=== PATIENT | male | born 1990 | race Caucasian/White ===

== ENCOUNTER → 2016-09-13 | Outpatient (CLI) | payer BC ==
[2015-07-31 21:20] VITALS: BP 115/69
--- NOTE | 2016-09-13 12:41 | RAD ---
Testicular ultrasound History: Left hydrocele. Comparison: Scrotal ultrasound 06/04/2013. Findings: Right testicle measures 4.7 x 2.2 x 3.0 cm. Right testicle demonstrates normal parenchymal echogenicity. The right epididymis is unremarkable. Small right hydrocele is seen. Left testicle measures 4.7 x 2.6 x 2.8 cm. Left testicle demonstrates normal parenchymal echogenicity. The left epididymis is suboptimally visualized. Large left hydrocele is again seen. Doppler imaging demonstrates normal flow to both testicles, without evidence of torsion. Impression: 1. No evidence of testicular mass or torsion. 2. Persistent large left hydrocele. Small right hydrocele.
== END | disposition home or self-care (01) ==
LOC: US 10:30
PROVIDERS: ATTEND Urology
DX: N43.2 Other hydrocele (principal)
CPT/HCPCS: 76870

== ENCOUNTER 2019-05-24 03:08 | Emergency (ER) | payer BC ==
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
[2019-05-24] MEDS ORDERED: IV RINGERS SOLUTION,LACTATED 1,000 ML IV SCH (03:14)
[2019-05-24 04:06] LABS: BASO % 0 % (0-3); EOS % 0 % (0-3); HEMATOCRIT 43.7 % (39.0-53.0); HEMOGLOBIN 15.1 g/dL (13.0-17.5); LYMPH # 0.4 x10^3/uL (1.0-4.8); LYMPH % 4 % (24-48); MEAN CORPUSCULAR HEMOGLOBIN 30 pg (25-35); MEAN CORPUSCULAR HGB CONC 35 g/dL (31-37); MEAN CORPUSCULAR VOLUME 88 fL (79-100); MONO # 0.8 x10^3/uL (0.0-1.1); MONO % 9 % (0-9); NEUT # 8.2 x10^3uL (1.8-7.7); NEUT % 87 % (31-73); PLATELET COUNT 131 x10^3/uL (140-400); RED BLOOD COUNT 4.99 x10^6/uL (4.30-5.70); RED CELL DISTRIBUTION WIDTH 13.2 % (11.5-14.5); WHITE BLOOD COUNT 9.4 x10^3/uL (4.0-11.0)
[2019-05-24 04:12] LABS: CALCIUM 8.4 mg/dL (8.5-10.1); CREATININE 1.3 mg/dL (0.7-1.3); GFR 65.3; POTASSIUM 4.2 mmol/L (3.5-5.1)
[2019-05-24] MEDS ORDERED: ONDA8TAB9 PO (04:21)
[2019-05-24] MEDS ORDERED: HYDR-1179 PO (04:21)
[2019-05-24 04:24] LABS: ALBUMIN 3.8 g/dL (3.4-5.0); DIRECT BILIRUBIN 0.3 mg/dL (0.0-0.2); MAGNESIUM 1.5 mg/dL (1.8-2.4); TOTAL PROTEIN 6.5 g/dL (6.4-8.2)
[2019-05-24] MEDS ORDERED: KETOROLAC 30 MG/ML VIAL. IVP ONE (04:30)
[2019-05-24] MEDS ORDERED: ONDANSETRON PF 4 MG/2 ML VIAL. IVP ONE (04:30)
[2019-05-24] MEDS ORDERED: FAMOTIDINE 20 MG/2 ML VIAL IVP ONE (04:30)
[2019-05-24 04:57] LABS: BACTERIA,URINE 0 /HPF (0-FEW); BILIRUBIN,URINE NEG (NEG); CLARITY,URINE CLEAR; COLOR,URINE YELLOW; GLUCOSE,URINE NEG (NEG); NITRITE,URINE NEG (NEG); RBC,URINE 0 /HPF (0-2); SQUAMOUS EPITHELIAL CELL,UR OCC /LPF; WBC,URINE OCC /HPF (0-4)
[2019-05-24 04:59] LABS: INFLUENZA A PATIENT NEGATIVE (NEGATIVE); INFLUENZA B PATIENT NEGATIVE (NEGATIVE)
[2019-05-24 05:00] LABS: BARBITURATES NEG (NEG); BENZODIAZEPINES NEG (NEG); CANNABINOIDS NEG (NEG); COCAINE NEG (NEG); METHADONE NEG (NEG); OPIATES NEG (NEG); PHENCYCLIDINE NEG (NEG)
[2019-05-24] MEDS ORDERED: IV RINGERS SOLUTION,LACTATED 1,000 ML IV ONE ×2 (05:00→06:00)
[2019-05-24 05:01] LABS: SEDIMENTATION RATE 8 (0-15)
[2019-05-24 05:06] LABS: AMPHETAMINE/METHAMPHETAMINE NEG (NEG)
[2019-05-24] MEDS ORDERED: ENOXAPARIN ** NOTE DOSE ** SYRINGE SQ ONE ×2 (05:30→06:30)
[2019-05-24] MEDS ORDERED: IOHEXOL 350 MG/ML 100 ML VIAL. IV ONE (06:00)
[2019-05-24] MEDS ORDERED: CONTRAST GIVEN MC PRN (06:00)
[2019-05-24] MEDS ORDERED: MORPHINE SULFATE 10 MG/ML SYRINGE. SQ ONE (06:00)
[2019-05-24] MEDS ORDERED: MAGNESIUM SULFATE 2GM 50 ML IV ONE (06:00)
--- NOTE | 2019-05-24 06:52 | RAD ---
Study: CT CHEST WITH CONTRAST - PULMONARY ANGIOGRAM History: Elevated d-dimer. Dizziness, fever, chills and congestion. Comparison: None. Technique: Helical CT of the chest performed after the administration of intravenous contrast and timed for angiographic evaluation of the pulmonary arteries per PE protocol. Coronal and sagittal 3D MIP reformations were obtained. One or more of the following individualized dose reduction techniques were utilized for this examination: 1. Automated exposure control 2. Adjustment of the mA and/or kV according to patient size 3. Use of iterative reconstruction technique. Findings: No pulmonary embolism. Soft tissue fullness at the anterior mediastinum exhibits areas of fatty density and is most likely on account of residual thymic tissue. 4 vessel arch configuration. Unremarkable aorta and visualized great vessels. Possible tiny hiatal hernia. Right hilar lymph node on image 73 series 4 measures just under 1 cm in short axis dimension. No airspace abnormality of either lung. Patent major airways. Mild gynecomastia. Unremarkable axilla. Some fluid is seen within the visualized portion of the colon which could represent a diarrheal state. Unremarkable osseous structures. IMPRESSION: 1. No pulmonary embolism or other acute abnormality is identified to account for the patient's symptoms. 2. Potential tiny hiatal hernia. 3. Soft tissue fullness at the anterior mediastinum is most likely residual thymic tissue given patient age. Electronically signed by: JUAN REID MD (05/24/2019 6:49 AM) [id number]
--- NOTE | 2019-05-24 08:04 | RAD ---
Examination: VENOUS LOWER EXT BILATERAL History: Elevated d-dimer. Comparison/Correlation: None EXAMINATION: VENOUS LOWER EXT BILATERAL FINDINGS: Bilateral lower extremity duplex venous ultrasound exam was performed. Grayscale, color Doppler, and spectral Doppler imaging was performed. Compression and augmentation was performed. The right common femoral vein, superficial femoral vein, popliteal vein, and greater saphenous vein are normal with no evidence of deep venous thrombus. Normal compressibility and augmentation is evident. The left common femoral vein, superficial femoral vein, popliteal vein, and greater saphenous vein are normal with no evidence of deep venous thrombus. Normal compressibility and augmentation is evident. Mid right calf veins bilaterally unremarkable. IMPRESSION: Normal bilateral lower extremity duplex ultrasound exam. No evidence of deep venous thrombus involving the lower extremities. Electronically signed by: Harrison Garrison MD (05/24/2019 8:01 AM) [facility]
[2019-05-24 09:10] VITALS: BP 131/72
[2019-05-24] MEDS ORDERED: ACETAMINOPHEN 500 MG TABLET PO ONE (09:30)
== END 2019-05-24 09:25 | disposition home or self-care (01) ==
LOC: ER 03:08
DX: K52.9 Noninfective gastroenteritis and colitis, unspecified (principal); D69.6 Thrombocytopenia, unspecified; R79.1 Abnormal coagulation profile; E83.42 Hypomagnesemia; Z86.711 Personal history of pulmonary embolism
CPT/HCPCS: 36415; 71275; 80048; 80076; 80307; 81001; 82550; 83690; 83735; 83880; 84484; 85025; 85379; 85651; 87070; 87493; 87804; 87880; 93970; 96361; 96365; 96366; 96372; 96375; 99285; J1650; J1885; J2270; J2405; J3475; J3490; J7120; Q9967

== ENCOUNTER 2021-08-31 18:17 | Emergency (ER) | payer BC, OTHER ==
[~2021-08-31] VITALS: Ht 167.6 cm; Wt 85.2 kg
[~2021-08-31 18:17] MED LIST: HYDR-1179 PO; ONDA8TAB9 PO
[2021-08-31 18:30] VITALS: BP 138/76
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
[2021-08-31] MEDS ORDERED: DIPHTH,PERTUSS(ACELL),TET TOX 0.5 ML DISP.SYRIN. VAX IM ONE (19:15)
[2021-08-31] MEDS ORDERED: cefTRIAXone IM 1 GM VIAL IM ONE (19:15)
[2021-08-31] MEDS ORDERED: AMOX1TAB61 PO (19:16)
== END 2021-08-31 19:49 | disposition home or self-care (01) ==
LOC: ER 18:17
DX: S61.252A Open bite of right middle finger without damage to nail, initial encounter (principal); W50.3XXA Accidental bite by another person, initial encounter; Y93.89 Activity, other specified; Y92.89 Other specified places as the place of occurrence of the external cause; Y99.8 Other external cause status
CPT/HCPCS: 86592; 86703; 86705; 86709; 86803; 87340; 90471; 90715; 96372; 99284; J0696